=== PATIENT | male | born 1975 | race Caucasian/White ===

== ENCOUNTER 2017-03-06 19:11 | Emergency (ER) | payer BC ==
[~2017-03-06] VITALS: Ht 182.9 cm; Wt 108.8 kg
[2017-03-06 19:20] VITALS: Ht 182.9 cm; Wt 108.8 kg
[2017-03-06] MEDS ORDERED: HYDR25TA PO (19:36)
[2017-03-06] MEDS ORDERED: ASPI-557 PO (19:36)
--- NOTE | 2017-03-06 19:40 | ERPDOC ---
Departure Disposition Decision Date: Mar 06, 2017 Disposition Decision Time: 21:08 Disposition: 01 DISCHARGED HOME, SELF-CARE Impression Impression Impression: Primary Impression: Hypertension Hypertension type: essential hypertension Qualified Codes: I10 - Essential ( primary) hypertension Severity: Moderate Condition: Stable Seen By: Mid-level only Referrals: JACEY GOOD MD (Family) Patient Instructions: Hypertension (ED) Problems/Meds/Labs Reviewed?: Yes Medications reviewed and manag: Yes Additional Instructions: Stop the hydrochlorothiazide. Start the Lisinopril 20mg daily. I do want you to continue to monitor your blood pressures at home and write them down. Follow up with your primary care provider as scheduled on Monday. Follow up care ordered?: Yes Mental Status: Alert Scripts Lisinopril (Lisinopril) 20 Mg Tablet 20 MG PO DAILY for HYPERTENSION, #7 TAB 0 Refills Prov: SREE CHAIREZ [employer] 03/06/17 HPI - General Medical General Chief Complaint: Hypertension Stated Complaint: HIGH BLOOD PRESSURE Time Seen by Provider: 19:25 Source: patient Exam Limitations: no limitations HPI - General Medical Initial Comments He presents to ER today for evaluation of his blood pressure. States today he was at work and started to feel lightheaded like he was going to pass out. He had felt like this on March 01 and had checked his blood pressure and it was elevated at that time. He did go to [facility] and was evaluated with an EKG and labs at that time. Was sent home with Rx for HCTZ which he has been taking. B/p was 150 systolic this morning. When he had the episode this afternoon he checked is b/p and it was 200 systolic. Occurred At: home Onset: Rapid Duration: 1-3 hrs Severity: moderate Associated Symptoms: DENIES: chest pain, cough, diaphoresis, fever/chills, headaches, loss of appetite, malaise, nausea/vomiting, rash, seizure, shortness of breath, syncope, weakness Allergies: Coded Allergies: No Known Allergies (Unverified Adverse Reaction, Unknown, 05/28/09) Past History Past Medical History Metabolic: hypertension Surgical History Denies Surgeries Family History Family History: Negative Vaccines Hx Tetanus Diptheria: No Hx Tetanus, Diptheria, Pertuss: No Social History Smoking Status: Never smoker Substance Use Type: does not use Alcohol Intake: none Review of Systems Constitutional Constitutional: DENIES: chills, dizziness, fatigue, fever, weakness Cardiovascular Cardiac: DENIES: chest pain, dyspnea on exertion, orthopnea Rhythm/Rate: DENIES: irregular beat, palpitations Pulmonary Respiratory: DENIES: cough, dyspnea, sputum, tachypnea GI Upper Abdomen: DENIES: nausea, pain, vomiting Lower Abdomen: DENIES: constipation, diarrhea, pain Integumentary Skin: DENIES: rash Neurological General: other (Lightheaded), DENIES: headache, numbness, tingling, weakness Physical Exam General General Nourishment: well nourished, well developed, appears stated age, no acute distress, adult General Body Habitus: well groomed Vitals and Pain First Documented Vital Signs Date Time Temp Pulse Resp B/P Pulse Ox O2 Delivery O2 Flow Rate FiO2 03/06/17 19:20 97.6 81 18 190/109 96 Room Air Weight: Kilograms: 108.800 Height (feet): 6 Height (inches): 0 Triage Pain Scale: RN VS reviewed by Provider: Yes Normal Exams: Neck: Full range of motion, without adenopathy, JVD, bruits or thyromegaly Chest/Resp: Clear all negron, with good airflow, and symmetry bilaterally CV: Regular rate and rhythm, without murmur or gallop, Pulses 2+ all extremities, capillary refill, <2 seconds all ext., no pedal edema noted Abdomen: Bowel sounds positive, soft, non-tender, non-distended, no hepatosplenomegaly, masses or bruits noted Lymphatic: No lymphadenopathy, or lymphedema noted Integumentary: No rashes, hives, or bruising noted Neurologic: Patient is alert, and oriented, cranial nerves, motor/sensory/ cerebellar, exams w/o gross deficits, to observation Psychiatric: Patient exhibits, appropriate attention, emotion and affect Differential Diagnoses Considering: Hypo/Hyperglycemia, Hypo/Hyperkalemia, Hypo/Hypernatremia, Medication Effect, Other (renal infarct, HTN) Progress Results/Orders Orders Procedure Category Date Status Time Cbc W/Auto LAB 03/06/17 Complete Diff-Reflex Manual Bmp - Basic Metabolic LAB 03/06/17 Complete Panel Iv Lock (Ed Only) EDM 03/06/17 Transmitted 19:33 Labetalol (Trandate) PHA 03/06/17 Complete 19:45 Hydralazine PHA 03/06/17 Complete (Apresoline) 21:00 Potassium Chloride PHA 03/06/17 Complete (Kdur) 21:00 Lab Results Laboratory Tests Test 03/06/17 20:23 White Blood Count 7.0T/MM3 Red Blood Count 4.75M/MM3 Hemoglobin 14.8GM/DL Hematocrit 42.7% Mean Corpuscular Volume 89.9UM3 Mean Corpuscular Hemoglobin 31.2UUG Mean Corpuscular Hemoglobin Concent 34.7GM/DL RDW Standard Deviation 37.8FL Platelet Count 242T/MM3 Mean Platelet Volume 9.5UM3 Immature Granulocyte % (Auto) 0.3% Neutrophils (%) (Auto) 60.7% Lymphocytes (%) (Auto) 24.0% Monocytes (%) (Auto) 11.7% Eosinophils (%) (Auto) 2.9% Basophils (%) (Auto) 0.4% Absolute Immature Granulocyte (auto 0.02T/MM3 Absolute Neutrophils (auto) 4.2T/MM3 Absolute Lymphocytes (auto) 1.7T/MM3 Absolute Monocytes (auto) 0.8T/MM3 Absolute Eosinophils (auto) 0.2T/MM3 Absolute Basophils (auto) 0.0T/MM3 Turbidity < 20 Sodium Level 143MEQ/L Potassium Level 3.3MEQ/L Chloride Level 100MEQ/L Carbon Dioxide Level 24MEQ/L Anion Gap 19MEQ/L Blood Urea Nitrogen 20.0MG/DL Creatinine 0.8MG/DL Glomerular Filtration Rate Calc 107 BUN/Creatinine Ratio 25RATIO Glucose Level 103MG/DL Calculated Osmolality 278MOSM/KG Calcium Level 9.7MG/DL Icterus Index < 2 Chemistry Specimen Hemolysis < 15 Medications Current ED Medications Labetalol HCl (Trandate) 10 mg O ONCE IV Last administered on 03/06/17 19:45 ; Start 03/06/17 at 19:45; Stop 03/06/17 at 19:46; Status DC Hydralazine HCl (Apresoline) 10 mg O ONCE IV Last administered on 03/06/17 20 :59; Start 03/06/17 at 21:00; Stop 03/06/17 at 21:01; Status DC Potassium Chloride (Kdur) 20 meq O ONCE PO Last administered on 03/06/17 20: 59; Start 03/06/17 at 21:00; Stop 03/06/17 at 21:01; Status DC Progress Progress K+-3.3. Did go ahead and give him a dose of KCL in ER. BUN and creatinine are normal. B/P down to 152/92 after Labetalol and Hydralazine. Will have him stop the HCTZ today and start some Lisinopril. He does have an appointment scheduled to get established with his PCP next week. If any further issues/concerns then return to ER. SREE CHAIREZ APRN Mar 06, 2017 19:39
[2017-03-06] MEDS ORDERED: LABETALOL 100mg/20ml INJECTION IV ONE (19:45)
[2017-03-06 20:34] LABS: BASOPHILS % (AUTO) 0.4 % (0-2); EOSINOPHILS # (AUTO) 0.2 T/MM3 (0-0.5); EOSINOPHILS % (AUTO) 2.9 % (0-4); HCT - HEMATOCRIT 42.7 % (41-53); HGB - HEMOGLOBIN 14.8 GM/DL (13.5-17.5); IMMATURE GRANULOCYTE # (AUTO) 0.02 T/MM3 (0.00-0.03); IMMATURE GRANULOCYTE % (AUTO) 0.3 % (0.0-0.5); LYMPHOCYTES # (AUTO) 1.7 T/MM3 (1-4.8); MEAN CORPUSCULAR HGB 31.2 UUG (26-34); MEAN CORPUSCULAR HGB CONC(MCHC 34.7 GM/DL (31-37); MEAN CORPUSCULAR VOLUME 89.9 UM3 (80-100); MEAN PLATELET VOLUME 9.5 UM3 (9.4-12.4); MONOCYTES # (AUTO) 0.8 T/MM3 (0-0.8); MONOCYTES % (AUTO) 11.7 % (0-9.0); NEUTROPHILS #(AUTO)-ABSOLUTE 4.2 T/MM3 (1.8-7.7); NEUTROPHILS % (AUTO) 60.7 % (33-66); RED BLOOD COUNT 4.75 M/MM3 (4.50-5.90)
[2017-03-06 20:37] LABS: ANION GAP 19 MEQ/L (5-15); BUN/CREATININE RATIO 25 RATIO (6-26); CALCIUM 9.7 MG/DL (8.4-10.2); CHLORIDE 100 MEQ/L (98-107); CO2 - CARBON DIOXIDE 24 MEQ/L (22-30); CREATININE 0.8 MG/DL (0.8-1.5); GLOMERULAR FILTRATION RATE 107; GLUCOSE 103 MG/DL (75-110); POTASSIUM 3.3 MEQ/L (3.6-5); SODIUM 143 MEQ/L (134-144)
[2017-03-06] MEDS ORDERED: POTASSIUM CHLORIDE 20 MEQ TABLET PO ONE (21:00)
[2017-03-06] MEDS ORDERED: LISI-621 PO (21:12)
[2017-03-06 21:23] VITALS: BP 152/92; PULSE 80; RESP 18; TEMP 97.6; O2SAT 96
== END 2017-03-06 21:23 | disposition home or self-care (01) ==
LOC: ED 19:11
DX: I10 Essential (primary) hypertension (principal); R42 Dizziness and giddiness
CPT/HCPCS: 80048; 85025; 96374; 96375; 99284; J0360